=== PATIENT | female | born 1965 ===

== ENCOUNTER 2016-10-29 13:28 | Emergency (ER) | payer SELFPAY ==
[2016-10-29 13:42] VITALS: BP 106/72; PULSE 88; RESP 18; TEMP 98; O2SAT 100
--- NOTE | 2016-10-29 14:25 | ED PDOC ---
HPI: General Adult Time Seen by Provider: 10/29/16 13:44 Chief Complaint (Nursing): Dental Pain Chief Complaint (Provider): Facial Tingling/Pain History Per: Patient History/Exam Limitations: no limitations Additional Complaint(s): Lili Escoto is a 51 year old female that presents to the ED with a chief complaint of blisters on the left side of her nose that radiate to her lips that she describes as itchy and tingling that she has been experiencing for the past week. She reports associated dysuria that she has had for the past day. Past Medical History Reviewed: Historical Data, Nursing Documentation, Vital Signs Vital Signs: Last Vital Signs Temp 98.0 F 10/29/16 13:38 Pulse 88 10/29/16 13:38 Resp 18 10/29/16 13:38 BP 106/72 10/29/16 13:38 Pulse Ox 100 10/29/16 14:32 - Family History Family History: States: Unknown Family Hx - Home Medications Home Medications: Ambulatory Orders Medication Instructions Recorded Cephalexin [Keflex] 500 mg PO BID #14 capsule 10/29/16 Mupirocin 2% Ointment [Bactroban 1 appl TP BID #1 tube 10/29/16 Ointment] valACYclovir [Valtrex] 1 gm PO TID #21 tab 10/29/16 - Allergies Allergies/Adverse Reactions: Allergies Allergy/AdvReac Type Severity Reaction Status Date / Time shellfish derived Allergy RASH Verified 10/29/16 13:37 Review of Systems Genitourinary Female: Positive for: Dysuria Skin: Positive for: Other (vesicales present left left side of face) Physical Exam - Reviewed Nursing Documentation Reviewed: Yes Vital Signs Reviewed: Yes - Physical Exam Appears: Positive for: Non-toxic, No Acute Distress Head Exam: Positive for: ATRAUMATIC, NORMOCEPHALIC Skin: Positive for: Warm. Negative for: Normal Color Eye Exam: Positive for: Normal appearance, EOMI, PERRL ENT: Positive for: Other (Ulcerated lesion to left upper lip. Small vesicles present between upper lip and left side of nose. ) Cardiovascular/Chest: Positive for: Regular Rate, Rhythm Respiratory: Positive for: Normal Breath Sounds Gastrointestinal/Abdominal: Positive for: Normal Exam Extremity: Positive for: Normal ROM Neurologic/Psych: Positive for: Alert, Oriented. Negative for: Motor/Sensory Deficits - ECG O2 Sat by Pulse Oximetry: 100 (RA) Pulse Ox Interpretation: Normal Medical Decision Making Medical Decision Making: Impression: Shingles Plan: * Urinalysis * Reevaluation Explained to patient that she may have shingles, which is an infection and virus affecting nerve tissue, which is why it is only present on one side of her face. Scribe Attestation: Documented by Lauren Roman, acting as a scribe for Gracie Montgomery PA-C. Provider Scribe Attestation: All medical record entries made by the Scribe were at my direction and personally dictated by me. I have reviewed the chart and agree that the record accurately reflects my personal performance of the history, physical exam, medical decision making, and the department course for this patient. I have also personally directed, reviewed, and agree with the discharge instructions and disposition. Disposition - Clinical Impression Clinical Impression: Shingles, UTI (urinary tract infection) - Patient ED Disposition Is Patient to be Admitted: No Counseled Patient/Family Regarding: Diagnosis, Need For Followup, Rx Given - Disposition Referrals: [facility] [Outside] Disposition: Routine/Home Disposition Time: 15:13 Condition: GOOD Prescriptions: Cephalexin [Keflex] 500 mg PO BID #14 capsule Mupirocin 2% Ointment [Bactroban Ointment] 1 appl TP BID #1 tube valACYclovir [Valtrex] 1 gm PO TID #21 tab Instructions: Shingles (ED), Urinary Tract Infection in Women (GEN) Forms: [facility] (Haitian) Print Language: ARMENIAN
== END 2016-10-29 15:20 | disposition home or self-care (01) ==
LOC: H.ER 13:28
DX: B02.9 Zoster without complications (principal); N39.0 Urinary tract infection, site not specified